=== PATIENT | male | born 1940 | race Caucasian/White ===

== ENCOUNTER 2017-07-17 16:46 | Emergency (ER) | payer OTHER ==
[~2017-07-17] VITALS: Ht 172.7 cm; Wt 84.5 kg
[2017-07-17 16:55] VITALS: Ht 172.7 cm; Wt 84.5 kg
[2017-07-17 16:59] VITALS: O2SAT 84
[2017-07-17] MEDS ORDERED: METHYLPREDNISOLONE 125 MG VIAL IV STA (17:06)
[2017-07-17] MEDS ORDERED: ALBUT/IPRATROP 3MG/0.5MG NEB 3 ML VIAL INH STA (17:06)
[2017-07-17 17:35] LABS: BASO % 0.2 %; BASO ABS # 0.02 K/uL (0-0.2); EOS % 1.8 %; EOS ABS # 0.21 K/uL (0-0.5); HEMATOCRIT 39.5 % (42-52); HEMOGLOBIN 12.3 g/dL (14.0-18.0); IG# 0.04 K/uL (0.00-0.02); LYMPH % 12.6 %; LYMPH ABS # 1.48 K/uL (1.2-3.4); MEAN CELL VOLUME 95.6 fL (80-100); MEAN CORPUSCULAR HEMOGLOBIN 29.8 pg (25-34); MEAN CORPUSCULAR HGB CONC 31.1 g/dl (32-36); MEAN PLATELET VOLUME 10.1 fL (7.4-10.4); MONO % 7.7 %; NEUT % 77.4 %; NEUT ABS # 9.05 K/uL (1.4-6.5); PLATELET COUNT 251 K/uL (130-400); RED CELL DISTRIBUTION WIDTH CV 14.8 % (11.5-14.5); RED CELL DISTRIBUTION WIDTH SD 51.9 fL (36.4-46.3)
[2017-07-17 17:48] LABS: INR 3.5 (0.9-1.1); PTT PATIENT 36.3 SECONDS (21.0-31.0)
[2017-07-17 17:58] LABS: ALBUMIN 3.1 gm/dl (3.4-5.0); CALCIUM 8.8 mg/dl (8.5-10.1); CREATININE 1.79 mg/dl (0.60-1.40); POTASSIUM 3.6 mmol/L (3.5-5.1)
[2017-07-17 18:00] LABS: TOTAL PROTEIN 6.8 gm/dl (6.4-8.2)
--- NOTE | 2017-07-17 19:09 | DIAGNOSTIC IMAGING REPORT ---
CT SCAN OF THE ABDOMEN AND PELVIS WITHOUT CONTRAST CLINICAL HISTORY: lower abd pain HYPERTENSION COMPARISON STUDY: No previous studies for comparison. TECHNIQUE: CT scan of the abdomen and pelvis was performed from the lung bases to the proximal femurs. Images are reviewed in the axial, sagittal, and coronal planes. IV contrast was not administered for this examination. A dose lowering technique was utilized adhering to the principles of ALARA. CT DOSE: 621.81 mGy.cm FINDINGS: Lower chest: There is pulmonary emphysema with multiple left lower lobe lung cysts. There is a left lower lobe pleural mass versus lobular pleural thickening measuring 3.5 cm. There is a small left pleural effusion. A nonemergent dedicated chest CT scan is recommended in follow-up. Liver: The unenhanced liver is normal in size, contour, and attenuation. There is no intrahepatic biliary ductal dilatation. Gallbladder: Unremarkable. Spleen: Normal in size and attenuation. Pancreas: Unremarkable. Adrenal glands: There is a low-density 3.5 cm left adrenal mass consistent with an adenoma. There is a 23 mm left adrenal gland adenoma Kidneys: There are bilateral vascular calcifications. No renal calculi are visualized. There is no hydronephrosis. No ureteral calculi are delineated. Bowel: There are no transition zones indicate bowel obstruction. There is colonic diverticulosis. There is no evidence of acute diverticulitis. By history the appendix is surgically absent. Peritoneum: There is no intraperitoneal free air or abdominal ascites. Vasculature: Atheromatous changes are present within the aorta. There is a 3.3 cm infrarenal abdominal aortic aneurysm. Adenopathy: None. Pelvic viscera: The prostate is enlarged. Skeletal structures: There is evidence for prior T12 and L2 vertebroplasty's IMPRESSION: 1. No evidence of bowel obstruction. No evidence of free air 2. No renal ureteral or bladder calculi identified 3. Diverticulosis. No evidence of acute diverticulitis 4. Prostamegaly 5. Bilateral adrenal adenomas 6. 3.3 cm infrarenal abdominal aortic aneurysm. 7. Emphysema with lower lobe cystic change. 8. 3.5 cm left lower lobe pleural mass versus focal pleural thickening. A nonemergent dedicated contrast-enhanced chest CT is recommended in follow-up Electronically signed by: Rajinder Mcmillan M.D. 07/17/2017 7:08 PM Dictated Date/Time: 07/17/2017 7:00 PM
--- NOTE | 2017-07-17 19:45 | DIAGNOSTIC IMAGING REPORT ---
CHEST 2 VIEWS ROUTINE CLINICAL HISTORY: Cough COMPARISON STUDY: No previous studies for comparison. FINDINGS: There is severe pulmonary emphysema. There are age-indeterminate interstitial basilar opacities left greater than right. There is a 12 mm right upper lung zone nodule and an area of fibrotic scarring.[ IMPRESSION: 1. Pulmonary emphysema with age-indeterminate interstitial basilar opacities. 2. 12 mm right upper lung zone nodule in an area fibrotic scarring Electronically signed by: Rajinder Mcmillan M.D. 07/17/2017 7:44 PM Dictated Date/Time: 07/17/2017 7:42 PM
[2017-07-17 22:46] VITALS: BP 149/83; PULSE 88; TEMP 36.4; O2SAT 92
--- NOTE | 2017-07-17 23:02 | EMERGENCY ROOM VISIT NOTE ---
History Report prepared by Kaley: Hadley Cordero Under the Supervision of: Dr. Sid Wilson M.D. First contact with patient: 16:53 Stated Complaint: HYPOTENSION, HYPOXIA, History of Present Illness The patient is a 77 year old male with a history of a heart attack, COPD, and atrial fibrillation who presents to the Emergency Room with complaints of persistent abdominal pain that started a week ago. He states that the pain is in the lower region of his abdomen, and he describes it as a "sickening pain". He also describes the pain as an achiness. The patient adds that he has had some dizzy and lightheaded spells today, and was seen at the [facility] prior to arrival today, and was told that he had a fever. He was also told that he was hypotensive, and the patient was then sent here for evaluation. He says that he has had black stool intermittently, and he has noted some blood in his stool at times but does not remember when. The patient denies any loss of consciousness, or vomiting. He also denies any chest pain or worsening shortness of breath. He notes that he is on Coumadin. The patient states that he is on 2 to 4 liters of oxygen normally. He says that he no longer smokes. Source of History: patient Onset: A week ago Position: abdomen (lower) Quality: ache Timing: other (persistent) Associated Symptoms: + fevers, + melena, + hematochezia, No LOC, No chest pain, No SOB (any worsening), No vomiting Note: Associated symptoms: Dizzy, lightheaded today. Hypotensive. Review of Systems See HPI for pertinent positives & negatives. A total of 10 systems reviewed and were otherwise negative. Past Medical & Surgical Medical Problems: (1) Afib (2) COPD (chronic obstructive pulmonary disease) (3) Heart attack Family History Family history omitted secondary to patient's advanced age. Social History Smoking Status: Former Smoker Smokeless Tobacco Use: No Drug Use: none Occupation Status: retired Physical Exam Vital Signs Date Time Temp Pulse Resp B/P (MAP) Pulse Ox O2 Delivery O2 Flow Rate FiO2 07/17/17 22:46 36.4 88 23 149/83 92 07/17/17 20:09 79 22 158/93 07/17/17 19:03 77 28 137/90 93 Oxymask 5.0 07/17/17 18:46 76 27 98 07/17/17 18:31 137/90 07/17/17 18:16 76 34 98 07/17/17 18:02 129/83 07/17/17 17:56 125/79 07/17/17 17:46 76 23 96 07/17/17 17:16 73 30 94 07/17/17 17:02 77 07/17/17 16:59 84 Nasal Cannula 3.0 07/17/17 16:55 36.4 84 22 110/65 91 Oxymask 3.0 07/17/17 16:47 110/65 Physical Exam Constitutional: Vital signs reviewed. Eyes: Pupils are equal round reactive to light. Conjunctiva are noninjected. ENT: Pharynx is clear without erythema or exudate. Mucous membranes are moist. Neck supple without meningeal signs. Respiratory: Poor air entry bilaterally. No wheezes or rales. Breath sounds are equal bilaterally. Cardiovascular: Irregularly irregular rhythm. No rubs or gallops. GI: Suprapubic left lower quadrant tenderness. No guarding. Soft, nondistended. Bowel sounds are present. Rectal: Guaiac negative brown stool. Musculoskeletal: No peripheral edema. No lower extremity tenderness. Integumentary: No cyanosis. Neurological: The patient is awake and alert. No focal deficits. Psychiatric: Normal affect. Medical Decision & Procedures ER Provider Diagnostic Interpretation: Radiology results as stated below per my review and the radiologist's interpretation: CT SCAN OF THE ABDOMEN AND PELVIS WITHOUT CONTRAST CLINICAL HISTORY: lower abd pain HYPERTENSION COMPARISON STUDY: No previous studies for comparison. TECHNIQUE: CT scan of the abdomen and pelvis was performed from the lung bases to the proximal femurs. Images are reviewed in the axial, sagittal, and coronal planes. IV contrast was not administered for this examination. A dose lowering technique was utilized adhering to the principles of ALARA. CT DOSE: 621.81 mGy.cm FINDINGS: Lower chest: There is pulmonary emphysema with multiple left lower lobe lung cysts. There is a left lower lobe pleural mass versus lobular pleural thickening measuring 3.5 cm. There is a small left pleural effusion. A nonemergent dedicated chest CT scan is recommended in follow-up. Liver: The unenhanced liver is normal in size, contour, and attenuation. There is no intrahepatic biliary ductal dilatation. Gallbladder: Unremarkable. Spleen: Normal in size and attenuation. Pancreas: Unremarkable. Adrenal glands: There is a low-density 3.5 cm left adrenal mass consistent with an adenoma. There is a 23 mm left adrenal gland adenoma Kidneys: There are bilateral vascular calcifications. No renal calculi are visualized. There is no hydronephrosis. No ureteral calculi are delineated. Bowel: There are no transition zones indicate bowel obstruction. There is colonic diverticulosis. There is no evidence of acute diverticulitis. By history the appendix is surgically absent. Peritoneum: There is no intraperitoneal free air or abdominal ascites. Vasculature: Atheromatous changes are present within the aorta. There is a 3.3 cm infrarenal abdominal aortic aneurysm. Adenopathy: None. Pelvic viscera: The prostate is enlarged. Skeletal structures: There is evidence for prior T12 and L2 vertebroplasty's IMPRESSION: 1. No evidence of bowel obstruction. No evidence of free air 2. No renal ureteral or bladder calculi identified 3. Diverticulosis. No evidence of acute diverticulitis 4. Prostamegaly 5. Bilateral adrenal adenomas 6. 3.3 cm infrarenal abdominal aortic aneurysm. 7. Emphysema with lower lobe cystic change. 8. 3.5 cm left lower lobe pleural mass versus focal pleural thickening. A nonemergent dedicated contrast-enhanced chest CT is recommended in follow-up Electronically signed by: Rajinder Mcmillan M.D. 07/17/2017 7:08 PM Dictated Date/Time: 07/17/2017 7:00 PM CHEST 2 VIEWS ROUTINE CLINICAL HISTORY: Cough COMPARISON STUDY: No previous studies for comparison. FINDINGS: There is severe pulmonary emphysema. There are age-indeterminate interstitial basilar opacities left greater than right. There is a 12 mm right upper lung zone nodule and an area of fibrotic scarring.[ IMPRESSION: 1. Pulmonary emphysema with age-indeterminate interstitial basilar opacities. 2. 12 mm right upper lung zone nodule in an area fibrotic scarring Electronically signed by: Rajinder Mcmillan M.D. 07/17/2017 7:44 PM Dictated Date/Time: 07/17/2017 7:42 PM Laboratory Results 07/17/17 17:26 Red Blood Count 4.13, Mean Corpuscular Volume 95.6, Mean Corpuscular Hemoglobin 29.8, Mean Corpuscular Hemoglobin Concent 31.1, Mean Platelet Volume 10.1, Neutrophils (%) (Auto) 77.4, Lymphocytes (%) (Auto) 12.6, Monocytes (%) (Auto) 7.7, Eosinophils (%) (Auto) 1.8, Basophils (%) (Auto) 0.2, Neutrophils # (Auto) 9.05, Lymphocytes # (Auto) 1.48, Monocytes # (Auto) 0.90, Eosinophils # (Auto) 0.21, Basophils # (Auto) 0.02 07/17/17 17:26 Test 07/17/17 17:26 07/17/17 17:30 White Blood Count 11.70 K/uL (4.8-10.8) Red Blood Count 4.13 M/uL (4.7-6.1) Hemoglobin 12.3 g/dL (14.0-18.0) Hematocrit 39.5 % (42-52) Mean Corpuscular Volume 95.6 fL (80-100) Mean Corpuscular Hemoglobin 29.8 pg (25-34) Mean Corpuscular Hemoglobin Concent 31.1 g/dl (32-36) Platelet Count 251 K/uL (130-400) Mean Platelet Volume 10.1 fL (7.4-10.4) Neutrophils (%) (Auto) 77.4 % Lymphocytes (%) (Auto) 12.6 % Monocytes (%) (Auto) 7.7 % Eosinophils (%) (Auto) 1.8 % Basophils (%) (Auto) 0.2 % Neutrophils # (Auto) 9.05 K/uL (1.4-6.5) Lymphocytes # (Auto) 1.48 K/uL (1.2-3.4) Monocytes # (Auto) 0.90 K/uL (0.11-0.59) Eosinophils # (Auto) 0.21 K/uL (0-0.5) Basophils # (Auto) 0.02 K/uL (0-0.2) RDW Standard Deviation 51.9 fL (36.4-46.3) RDW Coefficient of Variation 14.8 % (11.5-14.5) Immature Granulocyte % (Auto) 0.3 % Immature Granulocyte # (Auto) 0.04 K/uL (0.00-0.02) Prothrombin Time 36.1 SECONDS (9.0-12.0) Prothromb Time International Ratio 3.5 (0.9-1.1) Activated Partial Thromboplast Time 36.3 SECONDS (21.0-31.0) Partial Thromboplastin Ratio 1.4 Anion Gap 3.0 mmol/L (3-11) Est Creatinine Clear Calc Drug Dose 36.6 ml/min Estimated GFR () 41.4 Estimated GFR (Non- 35.8 BUN/Creatinine Ratio 19.8 (10-20) Calcium Level 8.8 mg/dl (8.5-10.1) Total Bilirubin 0.9 mg/dl (0.2-1) Direct Bilirubin 0.4 mg/dl (0-0.2) Aspartate Amino Transf (AST/SGOT) 18 U/L (15-37) Alanine Aminotransferase (ALT/SGPT) 24 U/L (12-78) Alkaline Phosphatase 133 U/L (45-117) Total Protein 6.8 gm/dl (6.4-8.2) Albumin 3.1 gm/dl (3.4-5.0) Lipase 107 U/L (73-393) Bedside Troponin I < 0.030 ng/ml (0-0.045) Laboratory results as reviewed by me. Medications Administered Medications (Trade) Dose Ordered Sig/Edie Route Start Time Stop Time Status Last Admin Dose Admin Albuterol/ Ipratropium (Duoneb) 3 ml NOW STAT INH 07/17/17 17:06 07/17/17 17:09 DC 07/17/17 17:51 3 ML Methylprednisolone Sodium Succinate (Solu-Medrol IV) 125 mg NOW STAT IV 07/17/17 17:06 07/17/17 17:09 DC 07/17/17 17:51 125 MG ECG Per My Interpretation Indication: other (dizzy) Rate (beats per minute): 77 Rhythm: atrial flutter (with 4 to 1 AV conduction) Findings: other (no ST elevations, no PVCs) ED Course 1653: The patient was evaluated in room B3B. A complete history and physical exam was performed. 1705: Solu-Medrol IV 125 mg, DuoNeb 3 ml INH. 1925: I reevaluated the patient and he has good air entry bilaterally on lung examination with no wheezing. He has no complaints currently, and his abdominal pain is better. He has minimal tenderness in the supraumbilical region. The patient's blood pressure has been normal to elevated throughout his stay here. I discussed the test results with him. He is going to x-ray. 2024: Upon reevaluation, the patient feels better and wants to go home. I discussed manolo's findings with him. He verbalized agreement of the treatment plan. He was discharged home. 2032: I reevaluated the patient and talked to him about his INR. He says that he has an appointment either tomorrow or with his doctor. Medical Decision This is a 77-year-old male presents with lower abdominal pain, fever and black stools. Differential diagnosis includes diverticulosis, diverticulitis, abscess , mass, GI bleed, supratherapeutic INR. I did perform a limited focused review of portions of the patient's old chart on the electronic medical record. The patient has had no prior visits. I did evaluate the patient as noted above. The patient is presenting with lower abdominal pain. He also states that he has had intermittent black stools. I did perform a guaiac examination on him. His stool was light brown and had no blood and was guaiac negative. [facility] he is not hypertensive here. He is actually hypertensive. His oxygen level was low but he is on oxygen daily and his pulse ox was within normal limits on oxygen here. He is wheezing and was given a DuoNeb as well as Solu-Medrol IV. IV access was established. The patient was placed on a continuous director of cardiac cath lab. I did order and personally review the patient's 12-lead EKG and chest x-ray as described above. Chest x-ray does not show any evidence of pneumonia. I did order and review the patient's blood work as noted in the electronic medical record. His white blood cell count is slightly elevated. He has a slightly elevated creatinine as well. I do not have a baseline to compare this with. He thinks that he has had problems with his kidneys in the past. His INR is supratherapeutic at 3.5. I did order a CT of the abdomen and pelvis. I did review the images myself as well as the radiology report as described above. There is no evidence of acute abnormality in the abdomen. No diverticulitis. He does have infrarenal aortic aneurysm measuring 3.3 cm as well as a pulmonary nodule. I did reassess the patient. I did discuss the test results with him in detail including incidental findings. He is feeling much better at this time. His lungs are clear to auscultation with good air entry bilaterally. He does wish to go home. I did recommend close follow-up with his doctor for further evaluation as the cause of his abdominal pain is unclear. He has an appointment tomorrow or the next day with his doctor and will discuss his Coumadin dosing given his supratherapeutic INR as well. He was discharged in good condition. He was also referred to Dr. Lucero due to his aneurysm. Medication Reconcilliation Current Medication List: was personally reviewed by me Blood Pressure Screening Patient's blood pressure: Normal blood pressure Impression Primary Impression: Lower abdominal pain Additional Impressions: COPD exacerbation Supratherapeutic INR Abdominal aortic aneurysm Scribe Attestation The scribe's documentation has been prepared under my direct and personally reviewed by me in its entirety. I confirm that the note above accurately reflects all work, treatment, procedures, and medical decision making performed by me. Departure Information Dispostion Home / Self-Care Referrals No Doctor, Assigned (PCP) Patient Instructions Aneurysm Abdominal Aortic, COPD Dc, ED Abdominal Pain Unkn Cause, My [facility] Additional Instructions You have been examined and treated today on an emergency basis only. This is not a substitute for, or an effort to provide, complete comprehensive medical care. It is impossible to recognize and treat all injuries or illnesses in a single emergency department visit. It is therefore important that you follow up closely with your physician and Dr. Lucero of vascular surgery regarding your aneurysm. Call as soon as possible for an appointment. Return for worsening symptoms or if you develop fever, vomiting, chest discomfort or any other concerning symptoms. Your INR was 3.5 today. This is slightly elevated and should be in the 2.5-3 range. Talk to your doctor about your Coumadin dosing. Problem Qualifiers Additional Impressions: Abdominal aortic aneurysm Presence of rupture: without rupture Qualified Codes: I71.4 - Abdominal aortic aneurysm, without rupture
== END 2017-07-17 22:46 | disposition home or self-care (01) ==
LOC: EDBD 16:46 → C.EDB 16:47
DX: R09.02 Hypoxemia (principal); I95.9 Hypotension, unspecified; J44.9 Chronic obstructive pulmonary disease, unspecified; I48.91 Unspecified atrial fibrillation; Z79.899 Other long term (current) drug therapy; Z87.891 Personal history of nicotine dependence; N40.0 Benign prostatic hyperplasia without lower urinary tract symptoms